=== PATIENT | female | born 1980 | race Caucasian/White ===

== ENCOUNTER 2016-11-02 14:44 | Observation (INO) ==
[2016-11-02] MEDS ORDERED: *HR* HYDROmorphone (PF) 1 MG/ML SYRINGE IVP PRN (15:42)
[2016-11-02] MEDS ORDERED: *HR* Belladonna Alkaloids/Opium 60 MG RECTAL SUPPOSITORY RC PRN (15:42)
[2016-11-02] MEDS ORDERED: Ondansetron 4 MG/2 ML VIAL IVP PRN (15:42)
[2016-11-02] MEDS ORDERED: *HR* Morphine 2 MG/ML SYRINGE IVP PRN (15:42)
[2016-11-02] MEDS ORDERED: *HR* Promethazine 25 MG/ML VIAL IVP PRN (15:42)
[2016-11-02] MEDS ORDERED: Naloxone 0.4 MG/ML INJ IVP PRN (15:42)
[2016-11-02] MEDS ORDERED: Ketorolac 30 MG/ML VIAL IVP PRN (15:42)
--- NOTE | 2016-11-02 15:53 | Urology History & Physical ---
Date of Encounter: 11/02/16 Time of Encounter: 15:51 Assessment and Plan (1) Ureteral stone with hydronephrosis Status: Acute patient transferred to [facility] for surgical intervention of the distal ureteral stone (8 mm). I discussed that a stone extraction with stent is the most appropriate treatment. pt is in agreement and understands the risks of the procedure including injury to the urinary tract, stricture, stent complications , UTI. will be able to discharge when pain controlled after surgery. History of Present Illness Chief complaint: flank pain HPI: Ms. Garcia is a 36 year old female well known to the service of urolithiasis. transfer from [facility] because of a 8 mm distal ureteral stone. pain for 4 days. intractable requiring transfer to [place]. no fever. Past Med Surg Social Fam HX - Past Medical History Medical history: kidney stones Psychiatric history: no psych history - Past Surgical History Surgical History: - Social History Smoking Status: Never smoker Smokeless Tobacco Status: No Alcohol use: none Drug use: none Medications and Allergies Cefdinir [Omnicef] 300 mg PO BID #20 capsule 02/06/15 [Rx] Oxybutynin [Ditropan] 5 mg PO TID PRN #50 tablet 02/06/15 [Rx] Allergies Oxycodone Adverse Reaction (Mild, Verified 02/05/15 10:06) Nausea Review of Systems - Constitutional no chills, no fever(s) - EENT Nose, mouth and throat: no dizziness - Cardiovascular no chest pain - Respiratory no cough - Gastrointestinal abdominal pain, nausea - Genitourinary Genitourinary: flank pain, hematuria - Musculoskeletal back pain - Integumentary no erythema - Neurological no confusion - Psychiatric no anxiety - Hematologic/Lymphatic no easy bleeding - Allergic/Immunologic no throat swelling Exam - General physical appearance Present: well developed, no distress - Eyes Present: PERRL - ENT Present: normal nares, decreased hearing - Neck Present: no masses - Respiratory Present: normal respiratory effort - Cardiovascular Cardiovascular exam IM: RRR - Abdomen Abdomen: Present: soft - Integumentary Present: no rash - Neurologic Present: normal coordination. Absent: disoriented, confused Urology Results - Labs All other labs normal.
[2016-11-02] MEDS: 0.9 % Sodium Chloride 1,000 ML IVC SCH (18:16)
[2016-11-03] MEDS: 0.9 % Sodium Chloride 1,000 ML IVC SCH (02:35)
[2016-11-03] MEDS ORDERED: *HR* Midazolam HCl 2 MG/2 ML VIAL ONE (08:21)
[2016-11-03] MEDS ORDERED: *HR* FentaNYL (PF) 100 MCG/2 ML VIAL ONE ×2 (08:21→08:27)
[2016-11-03] MEDS ORDERED: *HR* Propofol 200 MG/20 ML VIAL IVP ONE (08:21)
[2016-11-03] MEDS ORDERED: *HR* Succinylcholine 200 MG/10 ML VIAL IVP ONE (08:27)
[2016-11-03] MEDS ORDERED: Ondansetron 4 MG/2 ML VIAL ONE (08:27)
[2016-11-03] MEDS ORDERED: Dexamethasone 4 MG/ML VIAL ONE (08:27)
[2016-11-03] MEDS ORDERED: Lidocaine -MPF 2% 2 ML VIAL ONE (08:27)
--- NOTE | 2016-11-03 08:51 | Discharge Summary ---
Date of Encounter: 11/03/16 Time of Encounter: 08:47 - Discharge Diagnosis (1) Ureteral stone with hydronephrosis Priority: Primary Status: Resolved - Discharge Medications Prescriptions: HYDROcodone/Acet 5/325 mg [[place] 5-325 mg] 1 tab PO Q4H PRN #15 tab PRN Reason: Pain Phenazopyridine HCl [Pyridium] 200 mg PO TIDAC PRN #15 tab PRN Reason: burning with urination Sulfamethoxazole/Trimeth DS [Bactrim DS] 1 each PO BID #6 tablet Home Medications: HYDROcodone/Acet 5/325 mg [[place] 5-325 mg] 1 tab PO Q4H PRN #15 tab 11/03/16 [Rx ] Phenazopyridine HCl [Pyridium] 200 mg PO TIDAC PRN #15 tab 11/03/16 [Rx] Sulfamethoxazole/Trimeth DS [Bactrim DS] 1 each PO BID #6 tablet 11/03/16 [Rx] Allergies/Adverse Reactions: Allergies Oxycodone Adverse Reaction (Mild, Verified 02/05/15 10:06) Nausea Date of admission: 11/02/16 16:45 Primary care physician: Papi Coker Discharging clinician: Lonny Sanchez Anticipated date of discharge: 11/03/16 - Patient Status Disposition: Home, Self-Care Condition: Good Functional capacity at discharge: independent ambulation Overall status at discharge: patient is progressing back to baseline - Discharge Instructions Follow Up With: Papi Coker DO [Primary Care Provider] - Lonny Sanchez MD [Partnered Physician] - (see instructions. patient can remove stent at home in 3-4 days. come to office on friday if any issues. otherwise, no need for followup in immediate future. ) Additional Instructions: expect stent discomfort including urgency, frequency, burning, blood in the urine and flank pain when urinating OK to remove stent at home in 3-4 days (or PRN sooner for significant stent pain ) expect some increased pain after the stent is removed. it normally will decrease after 12-24 hours. call for fever >101. no need for followup unless issues with stent removal/concerns/questions/etc. - Diet and Activity Activity: increase activity as tolerated Diet: advance to your usual diet - Hospital Course Hospital course: Ms. Garcia is a 36 year old female transferred for a 8 mm distal right ureteral stone. s/p successful stone extraction with stent placement. plan for discharge today when pain is controlled. - Time Spent with Patient Total time spent providing and/or coordinating discharge services: Less than 30 minutes Exam Initial Vital Signs Temp Pulse Resp BP Pulse Ox 98.2 F 91 16 102/61 100 11/02/16 17:48 11/02/16 17:48 11/02/16 17:48 11/02/16 17:48 11/02/16 17:48 - General physical appearance Present: well developed, no distress
--- NOTE | 2016-11-03 09:19 | Anesthesia Evaluation PreOp ---
Date of Encounter: 11/03/16 Time of Encounter: 09:17 - Past History Planned Operation: Right ureteral stone extraction Cardiac History: Denies any Significant Hx Pulmonary History: Denies Any Significant HX FINANCIAL SERVICES DIRECTOR History: Denies Any Significant HX Other Medical History: Denies Any Significant HX, Renal (Stones) Anesthesia History: No Prior Anesthetic Complications, Past Anesthesia (Stone extraction) : No Test: Negative (11/02/2016) Alcohol Use: none Drug use: none Medications and Allergies HYDROcodone/Acet 5/325 mg [[place] 5-325 mg] 1 tab PO Q4H PRN #15 tab 11/03/16 [Rx ] Phenazopyridine HCl [Pyridium] 200 mg PO TIDAC PRN #15 tab 11/03/16 [Rx] Sulfamethoxazole/Trimeth DS [Bactrim DS] 1 each PO BID #6 tablet 11/03/16 [Rx] Allergies Oxycodone Adverse Reaction (Mild, Verified 02/05/15 10:06) Nausea - Meds/Allergy Pre-op Review Medications Reviewed: Yes Allergies Reviewed: Yes Beta Blockers on Current Med List: No Anesthesia Exam O2 Sat Height 1.57 m Height 1.57 m Weight 60.1 kg Weight 58.967 kg Weight 60.282 kg O2 Sat by Pulse Oximetry 100 O2 Sat by Pulse Oximetry 100 O2 Sat by Pulse Oximetry 98 O2 Sat by Pulse Oximetry 99 O2 Sat by Pulse Oximetry 100 O2 Sat by Pulse Oximetry 100 Vital Signs Temp Pulse Resp BP Pulse Ox 98.2 F 91 16 102/61 100 11/02/16 17:48 11/02/16 17:48 11/02/16 17:48 11/02/16 17:48 11/02/16 17:48 Vital Signs/O2 Sat, Most Current Temp Pulse Resp BP Pulse Ox 98.2 F 83 16 97/58 100 11/03/16 07:16 11/03/16 07:16 11/03/16 07:16 11/03/16 07:16 11/03/16 08:00 Height: 5'2'' Weight: 132# NPO (# of Hours): > 8 hrs Pain Scale: 0 Pain Scale Used: Numeric (1 - 10) - HEENT Pupil (Motor): Pupils equal, EOMI Mallampati: I Teeth: Normal Oral Opening: Greater than 3 - FINANCIAL SERVICES DIRECTOR LOC: Oriented FINANCIAL SERVICES DIRECTOR Motor: Normal RUE, Normal LUE, Normal RLE, Normal LLE, Normal Face FINANCIAL SERVICES DIRECTOR Sensory: Normal: RUE, LUE, RLE, LLE, Face - Cardiac Rhythm: Regular Murmur: None JVD: No Carotid Bruit: No - Pulmonary Breath Sounds: bilateral Clear Respiratory Effort: Symmetrical Anesthesia Assess/Plan ASA Score: 1 Modified Benton Scale for Level of Consciousness: Cooperative, oriented, and tranquil Anesthetic Plan: General Autologous Blood: Yes Monitoring Plan: Standard Monitors Recovery Plan: PACU
[2016-11-03] MEDS ORDERED: *HR* Labetalol 100 MG/20 ML MDV IVP PRN (09:20)
[2016-11-03] MEDS ORDERED: Ondansetron 4 MG/2 ML VIAL IVP ONE (09:20)
[2016-11-03] MEDS ORDERED: Albuterol 2.5 MG/3 ML NEBULIZER IH ONE (09:20)
[2016-11-03] MEDS ORDERED: *HR* HYDROmorphone (PF) 1 MG/ML SYRINGE IVP PRN ×2 (09:20→11:48)
[2016-11-03] MEDS ORDERED: *HR* Promethazine 25 MG/ML VIAL IVP PRN ×2 (09:20→11:48)
--- NOTE | 2016-11-03 11:45 | Anesthesia Evaluation Post Op ---
Date of Encounter: 11/03/16 Time of Encounter: 11:40 - Vital Signs Vital Signs: Vital Signs/O2 Sat, Most Current Temp Pulse Resp BP Pulse Ox 98.6 F 73 16 103/63 98 11/03/16 11:35 11/03/16 11:35 11/03/16 11:35 11/03/16 11:35 11/03/16 11:35 - Lungs Lungs: Clear Ascult./Percussion - Airway Airway: Non-obstructed - Cardiovascular Regular Rate - Mental Status Mental Status: Alert & Oriented, Answers Appropriately - Pain Pain Scale: 0 Pain Scale used: Numeric (1 - 10) - Nausea Vomiting Nausea Vomiting: Not Present - Hydration Hydration: NPO, Has not voided - Discharge PostOp Status: Transfer Patient to floor
[2016-11-03] MEDS ORDERED: Naloxone 0.4 MG/ML INJ IVP PRN (11:48)
[2016-11-03] MEDS ORDERED: *HR* HYDROcodone/Acet 5/325 mg TABLET PO PRN (11:48)
[2016-11-03] MEDS ORDERED: Ketorolac 30 MG/ML VIAL IVP PRN (11:48)
[2016-11-03] MEDS ORDERED: *HR* Belladonna Alkaloids/Opium 60 MG RECTAL SUPPOSITORY RC PRN (11:48)
[2016-11-03] MEDS ORDERED: Ondansetron 4 MG/2 ML VIAL IVP PRN (11:48)
[2016-11-03] MEDS ORDERED: *HR* Morphine 2 MG/ML SYRINGE IVP PRN (11:48)
[2016-11-03 14:50] VITALS: BP 99/64
--- NOTE | 2016-11-03 20:02 | Operative Note ---
Date of procedure: 11/03/16 Pre-op diagnosis: 9 mm distal ureteral stone. Post-op diagnosis: same Procedure: right ureteroscopic stone extraction with holmium laser lithotripsy. Right retrograde pyelogram. Right ureteral stent placement Anesthesia: GETA Surgeon: Lonny Sanchez Estimated blood loss (cc): 0 Specimen: stone was retrieved but not sent for analysis Condition: stable Disposition: PACU Procedure in Detail: PROCEDURE IN DETAIL: Patient was taken back to the operating room, positioned supine on the operating table. Anesthesia was applied without complication. They were moved into dorsal lithotomy. Careful attention was maintained to cushion all pressure points for patient's safety. They were prepped and draped in sterile fashion. Time-out was performed with the proper patient and procedure. A 17-Surinamese rigid cystoscope was inserted into the bladder without difficulty. Systematic examination of bladder revealed no abnormalities. The right ureteral orifice was cannulated using a 5-Surinamese ureteral Catheter and a retrograde pyelogram was performed using Isovue. A filling defect was identified which corresponded to the stone. At that point, a zip wire was placed through the 5-Surinamese and confirmed in the renal pelvis with fluoroscopy. A semi-rigid ureteroscope was carefully inserted into the bladder and guided into the ureteral oriface. At that point, the stone was encountered and I felt that it required fragmentation for safe extraction. A 200 micron holmium laser fiber on a setting of 8 and 800 was used to fragment the stone into multiple pieces. The fragments were individually basketed out of the ureter with a 1.9 tipless basket. All stone in the ureter was removed. A 4.8 x 26 ureteral stent was placed over the zip wire under fluoroscopy without complication. The bladder was drained along with the stone fragments. They were collected and sent for stone analysis. The string was left attached to the stent and secured to the patient for easy removal in approximately 72 hours
== END 2016-11-03 15:30 | disposition home or self-care (01) ==
LOC: 3BNU
PROVIDERS: ADMIT Urology; ATTEND Urology